=== PATIENT | female | born 1960 | race Two or more races ===

== ENCOUNTER 2023-08-09 12:10 | Inpatient (IN) | payer BC, OTHER ==
[2023-08-09] VITALS (9 sets, daily range): BP systolic 108–115; BP diastolic 65–79; PULSE 75–98; RESP 12–19; TEMP 97.6–98.5; O2SAT 90–100
[~2023-08-09] VITALS: Ht 157.5 cm; Wt 105.5 kg
[2023-08-09] MEDS: NITROGLYCERIN 0.4 MG SL TAB SL ONE (12:57)
[2023-08-09] MEDS: ASPirin 325 MG TAB PO ONE (12:57)
[2023-08-09] MEDS: HEPARIN SODIUM (PORCINE) 5000 UNITS/ML 1ML VIAL IV ONE (13:23)
[2023-08-09] MEDS: ONDANSETRON HCL 4 MG/2 ML VIAL IV ONE (13:23)
[2023-08-09] MEDS: MORPHINE SULFATE 4 MG/ML SYR/VIAL ONE (13:24)
[2023-08-09] MEDS: MORPHINE SULFATE 4 MG/ML SYR/VIAL IV ONE (13:25)
[2023-08-09 13:29] LABS: Basophils # (auto) 0.1 10 ^3/uL (0-0.2); Basophils % (auto) 0.7 % (0.0-2.0); Eosinophils # (auto) 0.1 10 ^3/uL (0-0.8); Eosinophils % (auto) 0.7 % (0.0-7.0); Hematocrit 35.9 % (36.0-46.0); Hemoglobin 11.7 g/dL (12.2-16.2); Lymphocytes # (auto) 3.2 10 ^3/uL (0.4-5.4); Lymphocytes % (auto) 25.2 % (10.0-50.0); Mean Corpuscular Hemoglobin 27.7 pg (28.0-32.0); Mean Corpuscular Hgb Conc. 32.7 g/dL (32.0-36.0); Mean Corpuscular Volume 84.8 fL (80.0-100.0); Monocytes % (auto) 8.2 % (0.0-12.0); Neutrophils # (auto) 8.3 10 ^3/uL (1.6-8.6); Neutrophils % (auto) 65.2 % (37.0-80.0); Red Blood Cells 4.23 10^6/uL (4.0-5.20); Red Cell Distribution Width 14.1 % (11.8-14.3); White Blood Cell 12.8 10^3/uL (4.4-10.8)
[2023-08-09] MEDS: ANGIOMAX 250 MG VIAL IV ONE ×2 (13:35→14:35)
[2023-08-09] MEDS: MIDAZOLAM HCL 2MG/2ML 2ml VIAL (1mg/ml) ONE (13:36)
[2023-08-09] MEDS: SODIUM CHL 0.9% 50 ML ONE ×2 (13:36→14:35)
[2023-08-09] MEDS: fentaNYL CITRATE 100 MCG/2 ML VL ONE (13:36)
[2023-08-09] MEDS: IODIXANOL 320MG/ML 100ML BTL IV ONE ×2 (13:36→14:23)
[2023-08-09] MEDS: LIDOCAINE 2%HCL (LOCAL ANESTH.) INJ 20ML MDV ONE ×2 (13:36→14:46)
[2023-08-09] MEDS: HEPARIN IN NS 1000Units/500mL 1,500 ML ONE (13:36)
[2023-08-09] MEDS: LORazepam 2MG/ML-1ML VIAL ONE (13:38)
[2023-08-09] MEDS: LORazepam 2MG/ML-1ML VIAL IV ONE (13:40)
[2023-08-09] MEDS: MORPHINE SULFATE INJ 2 MG/ml SYRG IV ONE (13:40)
[2023-08-09 13:51] LABS: Alanine Aminotransferase 21 U/L (7-40); Albumin 4.1 g/dL (3.2-4.8); Alkaline Phosphatase 106 U/L (46-116); Anion Gap 15 (5-15); Aspartate Aminotransferase 20 U/L (13-40); BUN/Creatinine Ratio 17.9 (10.0-20.0); Bilirubin, Total 0.6 mg/dL (0.2-1.0); Blood Urea Nitrogen 15 mg/dL (9-23); Calcium 9.8 mg/dL (8.5-10.1); Carbon Dioxide 18 mmol/L (20-30); Chloride 110 mmol/L (98-107); Glucose 154 mg/dL (74-106); Potassium 3.3 mmol/L (3.5-5.1); Sodium 143 mmol/L (136-145); Total Protein 6.7 g/dL (5.7-8.2)
[2023-08-09] MEDS ORDERED: LID35TP TOP (13:52)
[2023-08-09] MEDS ORDERED: ROSU10TA64 PO (13:52)
[2023-08-09] MEDS ORDERED: AZIT-43 PO (13:52)
[2023-08-09] MEDS ORDERED: LOSA-535 PO (13:52)
[2023-08-09] MEDS ORDERED: MELO15TA29 PO (13:52)
[2023-08-09] MEDS ORDERED: AMLO1TAB22 PO (13:52)
[2023-08-09] MEDS ORDERED: ERGO1CAP12 PO (13:52)
[2023-08-09] MEDS ORDERED: ESCI1TAB36 PO (13:52)
[2023-08-09] MEDS ORDERED: SODIUM CHLORIDE 0.9% 1,000 ML IV SCH (14:00)
[2023-08-09] MEDS ORDERED: DEXTROSE (50%) 50ML SYRG IV PRN (14:00)
[2023-08-09] MEDS ORDERED: Meloxicam 15MG TAB PO PRN (14:00)
[2023-08-09] MEDS: ONDANSETRON HCL 4 MG/2 ML VIAL ONE (14:03)
[2023-08-09] MEDS: EPTIFIBATIDE INJ (2MG/ML) 10ML VIAL IV ONE (14:08)
[2023-08-09] MEDS ORDERED: POTASSIUM EFFERVESENT TAB 25 MEQ PO ONE (14:15)
[2023-08-09] MEDS ORDERED: ASPirin 325 MG TAB PO ONE (14:15)
[2023-08-09] MEDS ORDERED: PANTOPRAZOLE 40 MG/10 ML VIAL INJ IV ONE (14:15)
[2023-08-09] MEDS: EPTIFIBATIDE DRIP(0.75MG/ML) 100 ML IV ONE (14:43)
[2023-08-09] MEDS: CLOPIDOGREL BISULFATE 75 MG TAB ONE (14:43)
[2023-08-09 15:02] LABS: Triglycerides 107 mg/dL (< 150)
[2023-08-09 15:03] LABS: LDL Cholesterol 108 mg/dL (< 100)
[2023-08-09 15:04] LABS: Cholesterol 150 mg/dL (< 200); HDL Cholesterol 39 mg/dL (40-59)
[2023-08-09] MEDS: METOCLOPRAMIDE HCL 5MG/ml INJ 2ml VIAL IV PRN (16:05)
[2023-08-09] MEDS: InsuLIN REG 1unit/0.01ml Soln (100units/ml) SC SCH (17:00)
[2023-08-09] MEDS: ACCU-CHEK COMFORT CURVE STRIP VI SCH (17:00)
[2023-08-09] MEDS ORDERED: METF-370 PO (17:16)
[2023-08-09] MEDS: EPTIFIBATIDE DRIP(0.75MG/ML) 100 ML IV SCH (20:28)
[2023-08-09] MEDS: METOPROLOL TARTRATE 25 MG TAB PO SCH (21:58)
[2023-08-09] MEDS: ATORVASTATIN 20 MG TAB PO SCH (22:00)
[2023-08-10] VITALS (9 sets, daily range): BP systolic 86–115; BP diastolic 46–75; PULSE 80–98; RESP 16–19; TEMP 97.1–98.6; O2SAT 94–97
[2023-08-10] MEDS: NITROGLYCERIN 0.4 MG SL TAB SL PRN (02:14)
[2023-08-10] MEDS: MORPHINE SULFATE INJ 2 MG/ml SYRG IV PRN (02:24)
[2023-08-10 06:21] LABS: Basophils # (auto) 0 10 ^3/uL (0-0.2); Basophils % (auto) 0.2 % (0.0-2.0); Eosinophils # (auto) 0 10 ^3/uL (0-0.8); Eosinophils % (auto) 0.1 % (0.0-7.0); Hematocrit 32.4 % (36.0-46.0); Hemoglobin 10.7 g/dL (12.2-16.2); Lymphocytes # (auto) 2.3 10 ^3/uL (0.4-5.4); Mean Corpuscular Hemoglobin 27.8 pg (28.0-32.0); Mean Corpuscular Volume 84.3 fL (80.0-100.0); Monocytes # (auto) 1.5 10 ^3/uL (0-1.3); Monocytes % (auto) 11.4 % (0.0-12.0); Neutrophils # (auto) 9.7 10 ^3/uL (1.6-8.6); Neutrophils % (auto) 71.3 % (37.0-80.0); Red Blood Cells 3.85 10^6/uL (4.0-5.20); White Blood Cell 13.6 10^3/uL (4.4-10.8)
[2023-08-10] MEDS: PANTOPRAZOLE 40 MG/10 ML VIAL INJ IV SCH (08:38)
[2023-08-10] MEDS: ENOXAPARIN SOD 40 MG/0.4 ML SYRINGE SC SCH (08:38)
[2023-08-10] MEDS: CITALOPRAM HYDROBR 20 MG TAB PO SCH (08:39)
[2023-08-10] MEDS: ERGOCALCIFEROL 50,000 UNIT(1.25MG) CAP PO SCH (08:39)
[2023-08-10] MEDS: LOSARTAN POTASSIUM 50 MG TAB PO SCH (08:40)
[2023-08-10] MEDS: CLOPIDOGREL BISULFATE 75 MG TAB PO SCH (08:41)
[2023-08-10] MEDS: amLODIPine BESYLATE 5 MG TAB PO SCH (08:41)
[2023-08-10] MEDS: ASPirin 81 mg TAB PO SCH (08:41)
[2023-08-10] MEDS ORDERED: ATORVASTATIN 20 MG TAB PO SCH (10:00)
[2023-08-10] MEDS: ONDANSETRON HCL 4 MG/2 ML VIAL IV PRN (11:30)
[2023-08-10] MEDS: ACETAMINOPHEN 325 MG TAB PO PRN (15:30)
[2023-08-10 20:12] LABS: Chloride 107 mmol/L (98-107); Potassium 3.6 mmol/L (3.5-5.1); Sodium 138 mmol/L (136-145)
[2023-08-10 20:13] LABS: Anion Gap 4 (5-15); Calcium 9.2 mg/dL (8.7-10.4); Carbon Dioxide 27 mmol/L (20-30)
[2023-08-10 20:18] LABS: Blood Urea Nitrogen 16 mg/dL (9-23); Glucose 156 mg/dL (74-106)
[2023-08-10 20:20] LABS: Basophils # (auto) 0 10 ^3/uL (0-0.2); Basophils % (auto) 0.2 % (0.0-2.0); Eosinophils # (auto) 0 10 ^3/uL (0-0.8); Eosinophils % (auto) 0.1 % (0.0-7.0); Hemoglobin 9.6 g/dL (12.2-16.2); Lymphocytes # (auto) 3.1 10 ^3/uL (0.4-5.4); Lymphocytes % (auto) 21.1 % (10.0-50.0); Mean Corpuscular Hemoglobin 27.1 pg (28.0-32.0); Mean Corpuscular Volume 84.4 fL (80.0-100.0); Monocytes # (auto) 1.4 10 ^3/uL (0-1.3); Monocytes % (auto) 9.9 % (0.0-12.0); Neutrophils # (auto) 10.1 10 ^3/uL (1.6-8.6); Neutrophils % (auto) 68.7 % (37.0-80.0); Red Blood Cells 3.55 10^6/uL (4.0-5.20); Red Cell Distribution Width 14.3 % (11.8-14.3); White Blood Cell 14.6 10^3/uL (4.4-10.8)
[2023-08-11] VITALS (8 sets, daily range): BP systolic 93–110; BP diastolic 53–70; PULSE 71–97; RESP 17–20; TEMP 97.8–99; O2SAT 92–98
[2023-08-11 01:58] LABS: Urine Bacteria None Seen /hpf (None Seen)
[2023-08-11 02:24] LABS: Urine Blood 2+ /uL (Negative); Urine Clarity Clear (Clear); Urine Color Light-Yellow (Yellow); Urine Protein, UAD Negative (Negative); Urine Specific Gravity 1.015 (1.001-1.035); Urine Urobilinogen Normal (Negative); Urine WBC 6 /hpf (0 - 5); Urine pH 5.5 (5.0-9.0)
[2023-08-11 07:03] LABS: Basophils # (auto) 0 10 ^3/uL (0-0.2); Basophils % (auto) 0.3 % (0.0-2.0); Eosinophils # (auto) 0.1 10 ^3/uL (0-0.8); Eosinophils % (auto) 0.6 % (0.0-7.0); Hemoglobin 9.4 g/dL (12.2-16.2); Lymphocytes # (auto) 3.3 10 ^3/uL (0.4-5.4); Lymphocytes % (auto) 25.3 % (10.0-50.0); Mean Corpuscular Hemoglobin 27.7 pg (28.0-32.0); Mean Corpuscular Hgb Conc. 32.6 g/dL (32.0-36.0); Mean Corpuscular Volume 84.9 fL (80.0-100.0); Monocytes # (auto) 1.5 10 ^3/uL (0-1.3); Monocytes % (auto) 11.8 % (0.0-12.0); Red Blood Cells 3.41 10^6/uL (4.0-5.20); Red Cell Distribution Width 13.9 % (11.8-14.3); White Blood Cell 12.9 10^3/uL (4.4-10.8)
[2023-08-11 07:26] LABS: Alanine Aminotransferase 39 U/L (7-40); Albumin 3.6 g/dL (3.2-4.8); Alkaline Phosphatase 84 U/L (46-116); Anion Gap 8 (5-15); Aspartate Aminotransferase 127 U/L (13-40); BUN/Creatinine Ratio 15.7 (10.0-20.0); Bilirubin, Total 0.7 mg/dL (0.2-1.0); Blood Urea Nitrogen 11 mg/dL (9-23); Carbon Dioxide 26 mmol/L (20-30); Chloride 106 mmol/L (98-107); Glucose 111 mg/dL (74-106); Potassium 3.4 mmol/L (3.5-5.1); Sodium 140 mmol/L (136-145); Total Protein 6.4 g/dL (5.7-8.2)
[2023-08-11] MEDS: METOPROLOL TARTRATE 25 MG TAB PO SCH (09:23)
[2023-08-11] MEDS ORDERED: ZOLPIDEM TARTRATE 5 MG TAB PO PRN (16:30)
[2023-08-12] VITALS (8 sets, daily range): BP systolic 104–143; BP diastolic 56–77; PULSE 76–91; RESP 16–20; TEMP 98.1–98.4; O2SAT 95–97
[2023-08-12 05:59] LABS: Basophils # (auto) 0 10 ^3/uL (0-0.2); Basophils % (auto) 0.4 % (0.0-2.0); Eosinophils # (auto) 0.2 10 ^3/uL (0-0.8); Eosinophils % (auto) 2.1 % (0.0-7.0); Hematocrit 28.6 % (36.0-46.0); Hemoglobin 9.1 g/dL (12.2-16.2); Lymphocytes # (auto) 3.4 10 ^3/uL (0.4-5.4); Lymphocytes % (auto) 34.2 % (10.0-50.0); Mean Corpuscular Hemoglobin 27.6 pg (28.0-32.0); Mean Corpuscular Volume 86.1 fL (80.0-100.0); Monocytes # (auto) 1.2 10 ^3/uL (0-1.3); Monocytes % (auto) 11.6 % (0.0-12.0); Neutrophils # (auto) 5.1 10 ^3/uL (1.6-8.6); Neutrophils % (auto) 51.7 % (37.0-80.0); Nucleated Red Blood Cells % 0.1 %; Red Blood Cells 3.32 10^6/uL (4.0-5.20); Red Cell Distribution Width 14.2 % (11.8-14.3)
[2023-08-12 06:14] LABS: Alanine Aminotransferase 30 U/L (7-40); Albumin 3.5 g/dL (3.2-4.8); Alkaline Phosphatase 80 U/L (46-116); Anion Gap 5 (5-15); Aspartate Aminotransferase 80 U/L (13-40); BUN/Creatinine Ratio 17.1 (10.0-20.0); Bilirubin, Total 0.6 mg/dL (0.2-1.0); Blood Urea Nitrogen 12 mg/dL (9-23); Calcium 9.3 mg/dL (8.7-10.4); Carbon Dioxide 28 mmol/L (20-30); Chloride 107 mmol/L (98-107); Glucose 107 mg/dL (74-106); Potassium 3.3 mmol/L (3.5-5.1); Sodium 140 mmol/L (136-145); Total Protein 6.3 g/dL (5.7-8.2)
[2023-08-12] MEDS: Meloxicam 15MG TAB PO SCH (11:29)
[2023-08-13 01:00] VITALS: BP 110/76; PULSE 75; RESP 20; TEMP 98; O2SAT 94
[2023-08-13 05:00] VITALS: BP 123/75; PULSE 87; RESP 20; TEMP 98.3; O2SAT 94
[2023-08-13 08:00] VITALS: PULSE 93
[2023-08-13 08:49] VITALS: BP 112/74; PULSE 84; RESP 16; TEMP 98.4; O2SAT 100
[2023-08-13 12:53] VITALS: BP 125/79; PULSE 90; RESP 18; TEMP 97.8; O2SAT 96
[2023-08-13] MEDS ORDERED: ASPI-628 PO (13:31)
[2023-08-13] MEDS ORDERED: CLOP75TA28 PO (13:31)
[2023-08-13] MEDS ORDERED: ATOR80TA PO (13:31)
[2023-08-13] MEDS ORDERED: METO25TA93 PO (13:31)
[2023-08-13 17:12] VITALS: BP 122/74; PULSE 94; RESP 20; TEMP 97.9; O2SAT 92
== END 2023-08-13 17:45 | disposition home or self-care (01) | DRG 322 ==
LOC: ER 12:10 → EDBD 12:10 → TELE 13:51 → TELE-WESTW 16:26
PROVIDERS: ADMIT Nurse Practitioner Family; ATTEND Family Medicine
PROC: 027034Z Dilation of Coronary Artery, One Artery with Drug-eluting Intraluminal Device, Percutaneous Approach (ICD-10-PCS; principal; 2023-08-09)
PROC: 02C03ZZ Extirpation of Matter from Coronary Artery, One Artery, Percutaneous Approach (ICD-10-PCS; 2023-08-09)
PROC: B2111ZZ Fluoroscopy of Multiple Coronary Arteries using Low Osmolar Contrast (ICD-10-PCS; 2023-08-09)
PROC: B2151ZZ Fluoroscopy of Left Heart using Low Osmolar Contrast (ICD-10-PCS; 2023-08-09)
PROC: 4A023N7 Measurement of Cardiac Sampling and Pressure, Left Heart, Percutaneous Approach (ICD-10-PCS; 2023-08-09)
PROC: 4A133B1 Monitoring of Arterial Pressure, Peripheral, Percutaneous Approach (ICD-10-PCS; 2023-08-09)
PROC: B41F1ZZ Fluoroscopy of Right Lower Extremity Arteries using Low Osmolar Contrast (ICD-10-PCS; 2023-08-09)
PROC: B241ZZ3 Ultrasonography of Multiple Coronary Arteries, Intravascular (ICD-10-PCS; 2023-08-09)
DX: I21.09 ST elevation (STEMI) myocardial infarction involving other coronary artery of anterior wall (principal); Z68.41 Body mass index [BMI] 40.0-44.9, adult; E11.9 Type 2 diabetes mellitus without complications; E66.01 Morbid (severe) obesity due to excess calories; E78.5 Hyperlipidemia, unspecified; E87.6 Hypokalemia; I10 Essential (primary) hypertension; F32.A Depression, unspecified; I25.2 Old myocardial infarction
CPT/HCPCS: 36415; 71045; 75710; 80048; 80053; 80061; 81001; 82962; 83036; 83735; 83880; 84132; 84443; 84484; 85025; 86850; 86900; 86901; 92943; 92973; 92978; 93005; 93306; 93458; 96374; 96375; 97110; 97116; 97163; 97530; 99152; C9113; G0378; J1815; J2250; J2405; Q9967